=== PATIENT | male | born 1945 | race Caucasian/White ===

== ENCOUNTER → 2019-06-24 | Outpatient (CLI) | payer OTHER, SELFPAY ==
--- NOTE | 2019-06-24 10:56 | ECHOD_ITS ---
Reason For Study: CAD, MVR Procedure This was a 2D Doppler, Color Flow transthoracic echocardiogram. Exam performed in department. Left Ventricle Mild concentric left ventricular hypertrophy. The estimated ejection fraction is 65 %. Stage 1 diastolic dysfunction. No regional wall motion abnormalities noted. Right Ventricle Mildly dilated right ventricle. Normal systolic function. Atria The left atrium is moderately enlarged. Normal right atrium. Normal atrial septum. Mitral Valve Peak transmitral valve gradient 9 mmHg. Mean transmitral valve gradient 3 mmHg. Stable appearing bioprosthetic mitral valve apparatus. Tricuspid Valve Normal tricuspid valve. Mild (1+) tricuspid valve insufficiency. Right ventricular systolic pressure estimated to be 25 mmHg. Aortic Valve Trisinus/trileaflet aortic valve. Mild diffuse aortic valve thickening. Trivial aortic valve insufficiency. Pulmonic Valve Normal pulmonic valve. Great Vessels Normal aortic root. Normal arch. Normal inferior vena cava. Inferior vena cava collapse with respiration. Pericardium/Pleural No pericardial effusion. MMode/2D Measurements & Calculations LVIDd: 3.7 cm IVSd: 1.2 cm Ao root diam: 3.3 cm LVIDs: 2.2 cm LVPWd: 1.3 cm RVDd: 3.6 cm FS: 41.8 % LAV(MOD-bp): 60.1 ml LVAd ap4: 27.6 cm2 SV(MOD-sp4): 37.4 ml LAV(MOD-bp) Indexed: 28.8 ml/m2 EDV(MOD-sp4): 80.1 ml LAV(MOD-sp2): 48.0 ml EDV(sp4-el): 81.0 ml LAV(MOD-sp4): 72.5 ml LVAs ap4: 18.5 cm2 ESV(MOD-sp4): 42.7 ml ESV(sp4-el): 39.4 ml EF(MOD-sp4): 46.7 % EF(sp4-el): 51.3 % SV(sp4-el): 41.6 ml LA A4 area: 22.8 cm2 LA dimension(2D): 4.7 cm RA A4 area: 13.7 cm2 Doppler Measurements & Calculations MV E max dario: 87.0 cm/sec Lat Peak E' Dario: 4.9 cm/sec Med Peak E' Dario: 4.8 cm/sec MV A max dario: 133.0 cm/sec E/E' lat: 17.7 E/E' med: 18.2 MV E/A: 0.65 MV V2 max: 147.0 cm/sec MV P1/2t max dario: 91.6 cm/sec Ao V2 max: 115.8 cm/sec MV max P.6 mmHg MV P1/2t: 86.3 msec Ao max P.4 mmHg MV V2 mean: 87.1 cm/sec MV mean P.3 mmHg MV dec slope: 310.9 cm/sec2 MV V2 VTI: 35.1 cm MVA(P1/2t): 2.5 cm2 AI max dario: 296.8 cm/sec LV V1 max: 101.0 cm/sec PA V2 max: 104.6 cm/sec AI max P.2 mmHg LV V1 max P.1 mmHg AI dec slope: 198.4 cm/sec2 AI P1/2t: 438.1 msec TR max dario: 235.8 cm/sec TR max P.3 mmHg Interpretation Summary Mild concentric left ventricular hypertrophy. The estimated ejection fraction is 65 %. Stage 1 diastolic dysfunction. Mildly dilated right ventricle. The left atrium is moderately enlarged. Stable appearing bioprosthetic mitral valve apparatus. Mild (1+) tricuspid valve insufficiency. Right ventricular systolic pressure estimated to be 25 mmHg. Trivial aortic valve insufficiency. There is no comparison study available. Ordering Physician: Rohit Ang Referring Physician: Brandon Angelo Performed By: Franca Alvarez RDCS
== END | disposition home or self-care (01) ==
LOC: CVS 10:53
PROVIDERS: Referring Provider Orthopaedic Surgery; Visit Provider Orthopaedic Surgery
DX: I25.10 Atherosclerotic heart disease of native coronary artery without angina pectoris (principal)
CPT/HCPCS: 93306